=== PATIENT | female | born 2000 | race Caucasian/White ===

== ENCOUNTER 2020-05-02 15:03 | Emergency (ER) | payer SELFPAY ==
--- NOTE | 2020-05-02 17:16 | ER Document Report ---
ED ENT - General Chief Complaint: Skin Problem Stated Complaint: SORE THROAT Time Seen by Provider: 05/02/20 15:47 Notes: CHIEF COMPLAINT: Sore throat for 2 to 3 days, skin rash for 2 days HPI: 19-year-old female presenting to the emergency department complaining of sore throat for 2 to 3 days without definitive fever she is concerned about strep throat. Has had a pruritic rash for 2 days. ROS: See HPI - all other systems were reviewed and are otherwise negative Constitutional: no fever Eyes: no drainage, no blurred vision ENT: no runny nose, + sore throat Cardiovascular: no chest pain Resp: no SOB, no cough GI: no vomiting, no diarrhea, no abdominal pain : no dysuria Integumentary: + rash Allergy: no hives Musculoskeletal: no extremity pain or swelling Neurological: no numbness/tingling, no weakness MEDICATIONS: I agree with the patient medications as charted by the RN. ALLERGIES: I agree with the allergies as charted by the RN. PAST MEDICAL HISTORY/PAST SURGICAL HISTORY: Reviewed and agree as charted by RN. SOCIAL HISTORY: Reviewed and agree as charted by RN. FAMILY HISTORY: No significant familial comorbid conditions directly related to patient complaint EXAM: Reviewed vital signs as charted by RN. CONSTITUTIONAL: Alert and oriented and responds appropriately to questions. Well-appearing; well-nourished HEAD: Normocephalic; atraumatic EYES: PERRL; Conjunctivae clear, sclerae non-icteric ENT: normal nose; no rhinorrhea; moist mucous membranes; mild pharyngeal erythema without exudate is noted d, no uvula edema or deviation, no tonsillar hypertrophy, phonation normal NECK: Supple without meningismus; non-tender; no cervical lymphadenopathy, no masses CARD: RRR; no murmurs, no clicks, no rubs, no gallops; symmetric distal pulses RESP: Normal chest excursion without splinting or tachypnea; breath sounds clear and equal bilaterally; no wheezes, no rhonchi, no rales, pulse oximetry 98% on room air not hypoxic ABD/GI: Normal bowel sounds; non-distended; soft, non-tender, no rebound, no guarding; no palpable organomegaly or masses. BACK: The back appears normal and is non-tender to palpation, there is no CVA tenderness EXT: Normal ROM in all joints; no cyanosis, no effusions, no edema SKIN: Normal color for age and race; warm; dry; good turgor; scattered raised erythematous rash slightly rough to touch on the bilateral forearms, upper anterior thighs and back NEURO: Moves all extremities equally; Motor and sensory function intact PSYCH: The patient's mood and manner are appropriate. Grooming and personal hygiene are appropriate. MDM: 19-year-old female with possible strep and scarlatina. Awaiting strep test - Related Data Allergies/Adverse Reactions: No Known Allergies Allergy (Verified 05/02/20 15:58) Past Medical History - Social History Smoking Status: Never Smoker Family History: Reviewed & Not Pertinent Patient has homicidal ideation: No Physical Exam - Vital signs Vitals: Temp 99.4 F 05/02/20 15:58 Course - Re-evaluation Re-evalutation: 05/02/20 18:20 Rapid strep is negative, will check mononucleosis given the sore throat and rash. Patient is requesting a test 05/02/20 19:05 Patient is positive for mononucleosis I did discuss this with her at length she is not . Will discharge home with symptomatic treatment follow-up with a PCP - Vital Signs Vital signs: Temp Pulse Resp BP Pulse Ox 99.4 F 86 16 111/68 100 05/02/20 16:05 05/02/20 16:05 05/02/20 16:05 05/02/20 16:05 05/02/20 16:05 - Laboratory Laboratory results interpreted by me: 05/02/20 18:12 Monotest POSITIVE H Discharge - Discharge Clinical Impression: Acute pharyngitis due to infectious mononucleosis Condition: Stable Disposition: HOME, SELF-CARE Additional Instructions: You were positive for mononucleosis today negative for strep throat. Treat symptomatically with Motrin Tylenol and fluids. Follow-up with your primary care provider for reevaluation of symptoms. You are not based on your test today. Forms: Return to Work
[2020-05-02 19:57] VITALS: BP 115/75
== END 2020-05-02 19:45 | disposition home or self-care (01) ==
LOC: ER 15:03
DX: B27.90 Infectious mononucleosis, unspecified without complication (principal); J02.9 Acute pharyngitis, unspecified; R21 Rash and other nonspecific skin eruption
CPT/HCPCS: 36415; 81025; 86308; 87070; 87077; 87880; 99283

== ENCOUNTER 2020-05-04 05:29 | Emergency (ER) | payer SELFPAY ==
[2020-05-04] MEDS ORDERED: CEFTRIAXONE INJ 1000 MG VIAL IV ONE (06:43)
[2020-05-04] MEDS ORDERED: NORMAL SALINE 1000 ML 1,000 ML IV ONE (06:45)
[2020-05-04] MEDS ORDERED: FAMOTIDINE INJ/PF 20 MG/2 ML SDV IV ONE (06:46)
[2020-05-04] MEDS ORDERED: METHYLPREDNISOLONE INJ 125 MG/2 ML SDV IV ONE (06:46)
--- NOTE | 2020-05-04 08:40 | ER Document Report ---
Entered by PATRICIA OCAMPO SCRIBE 05/04/20 0642 Acting as scribe for:JOSIAH STODDARD MD ED General - General Chief Complaint: Skin Problem Stated Complaint: SKIN PROBLEM Time Seen by Provider: 05/04/20 06:13 Mode of Arrival: Ambulatory Information source: Patient Notes: This 19-year-old female patient presents to the emergency department today with complaints of a diffuse urticarial maculopapular rash. Patient states she was seen here x2 days ago and was diagnosed with mono. Patient states that at that time she had a very small localized rash but it has now spread basically across her entire body. Patient states her sore throat is now gone. Patient states the rash itches. - Related Data Allergies/Adverse Reactions: No Known Allergies Allergy (Verified 05/02/20 15:58) Past Medical History - General Information source: Patient - Social History Smoking Status: Current Every Day Smoker Cigarette use (# per day): Yes Chew tobacco use (# tins/day): No Frequency of alcohol use: None Drug Abuse: None Lives with: Family Family History: Reviewed & Not Pertinent Patient has homicidal ideation: No Surgical Hx: Negative Review of Systems - Review of Systems Constitutional: No symptoms reported EENT: See HPI, Throat pain Cardiovascular: No symptoms reported Respiratory: No symptoms reported Gastrointestinal: No symptoms reported Genitourinary: No symptoms reported Female Genitourinary: No symptoms reported Musculoskeletal: No symptoms reported Skin: See HPI, Rash Hematologic/Lymphatic: No symptoms reported Neurological/Psychological: No symptoms reported -: Yes All other systems reviewed and negative Physical Exam - Vital signs Vitals: Temp Pulse Resp BP Pulse Ox 98.5 F 87 16 124/63 100 05/04/20 05:33 05/04/20 05:33 05/04/20 05:33 05/04/20 05:33 05/04/20 05:33 - Notes Notes: Physical Exam: General: Alert, appears uncomfortable. Itching skin. HEENT: Normocephalic. Atraumatic. PERRL. Extraocular movements intact. Oropharynx clear. Tonsillar hypertrophy and erythema without adenopathy. Neck: Supple. Non-tender. Respiratory: No respiratory distress. Clear and equal breath sounds bilaterally. Cardiovascular: Regular rate and rhythm. Abdominal: Normal Inspection. Non-tender. No distension. Normal Bowel Sounds. Back: No gross abnormalities. Extremities: Moves all four extremities. Upper extremities: Normal inspection. Normal ROM. Lower extremities: Normal inspection. No edema. Normal ROM. Neurological: Normal cognition. AAOx4. Normal speech. Psychological: Normal affect. Normal Mood. Skin: Diffuse urticarial maculopapular rash Course - Re-evaluation Re-evalutation: 05/04/20 08:30 Patient resting comfortably not showing signs of distress at this time. Patient reports less itching at this time. - Vital Signs Vital signs: Temp Pulse Resp BP Pulse Ox 98.5 F 87 16 124/63 100 05/04/20 05:33 05/04/20 05:33 05/04/20 05:33 05/04/20 05:33 05/04/20 05:33 05/04/20 08:30 Vital signs stable - Laboratory Laboratory results interpreted by me: Rapid strep screen negative and throat culture pending at this time. Discharge - Discharge Clinical Impression: Acute pharyngitis due to infectious mononucleosis, Urticarial rash Condition: Stable Disposition: HOME, SELF-CARE Additional Instructions: Sore Throat Sore throats may be caused by viruses, bacteria, or fungi. Most are due to a virus, and must get better on their own. Bacterial sore throats, particularly those due to "strep," need treatment with antibiotics. If an antibiotic is prescribed, be sure to take the medication for a full 10 days. Failure to take the antibiotic can result in complications such as rheumatic fever. Sometimes, an injection of antibiotics is given instead of pills or liquid. This single "shot" is equal in effectiveness to the oral medication. To relieve symptoms, take acetaminophen for pain. Sip clear liquids frequently, or eat popsicles or ice chips. Anesthetic sprays or lozenges may help. Make sure the air in the room is not too dry. Avoid using decongestants or antihistamines. Call the doctor if there is no improvement in two days, or if you have difficulty breathing, increasing throat pain, high fever, rash, or frequent vomiting. You may begin Benadryl 25 to 50 mg every 6 hours if needed for itching and rash and also consider using Pepcid 20 mg twice a day if needed in order to control urticarial itchy rash if you want to avoid sedation from Benadryl. [facility] [address] Elliott [address] Prescriptions: Amoxicillin 875 mg PO BID #20 tablet Prednisone [Deltasone 20 mg Tablet] 2 tab PO DAILY 5 Days #10 tablet I personally performed the services described in the documentation, reviewed and edited the documentation which was dictated to the scribe in my presence, and it accurately records my words and actions.
[2020-05-04 09:00] VITALS: BP 116/62
== END 2020-05-04 09:01 | disposition home or self-care (01) ==
LOC: ER 05:29
DX: B27.90 Infectious mononucleosis, unspecified without complication (principal); L50.9 Urticaria, unspecified; F17.210 Nicotine dependence, cigarettes, uncomplicated
CPT/HCPCS: 99283; 96375; 96365; 87070; 87880; 87077; J2930; J0696; J7030; S0028; 36415